=== PATIENT | male | born 1965 | race Caucasian/White ===

== ENCOUNTER 2016-11-21 07:38 | Emergency (ER) ==
[2016-11-21 07:59] LABS: URINE CULTURE PL NEEDED? NO; URINE SOURCE CLEAN CATCH
[2016-11-21 08:24] LABS: BILIRUBIN URINE NEGATIVE (NEGATIVE); BLOOD URINE NEGATIVE (NEGATIVE); CLARITY CLEAR (CLEAR); COLOR YELLOW; GLUCOSE URINE NEGATIVE (NEGATIVE); LEUKOCYTES URINE TRACE (NEGATIVE); NITRITE URINE NEGATIVE (NEGATIVE); PROTEIN URINE NEGATIVE (NEGATIVE); UROBILINOGEN URINE NORMAL
[2016-11-21 08:25] LABS: URINE EPITHELIAL CELLS <10 /HPF (<10); URINE RBC <10 /HPF (<10)
--- NOTE | 2016-11-21 08:53 | PROVIDER DOCUMENTATION ---
HPI-Male Problem - General Chief Complaint: Groin Pain Stated Complaint: ABD PAIN/UTI SX Time Seen by Provider: 11/21/16 08:33 Source: patient, family Allergies/Adverse Reactions: Patient Allergies Allergy/AdvReac Type Severity Reaction Status Date / Time meperidine HCl * Allergy Severe seizure Verified 04/18/15 00:02 [From Demerol] methylprednisolone AdvReac Severe NAUSEA Verified 04/18/15 00:02 Home Medications: Prednisone 5 mg PO DAILY 10/24/13 - History of Present Illness-Male Nature of Presenting Problem: Pt presents to er with cc of left groin pain with decreased output and urgency since Friday. Reports went to [facility] on Friday where an ultrasound of kidneys and bladder was done test came back negative. Pt reports hx of kidney stones,Mi, Sarcoidosis and takes daily prednisone for lung disease. Location of Complaint: reports: groin (left) Quality of Pain: reports: aching Severity in ED: reports: severe Onset/Duration: reports: 5 days ago Timing: reports: still present Urinary Symptoms: reports: urgency Similar Symptoms Previously?: Yes Recently seen or treated by another doctor?: Yes Review of Systems - Adult - REVIEW OF SYSTEMS - ADULT Constitutional: denies: chills, fever, fatique Eyes: reports: no symptoms reported Ears, Nose, Mouth & Throat: denies: ear pain, sinus problem, throat pain Cardiovascular: reports: no symptoms reported Respiratory: reports: no symptoms reported Gastrointestinal: reports: no symptoms reported Genitourinary: reports: see HPI, urgency. denies: frequent UTI's, hematuria, hesitency Musculoskeletal: reports: no symptoms reported Integumentary: reports: no symptoms reported Neurological: reports: no symptoms reported Psychiatric: reports: no symptoms reported Endocrine: reports: no symptoms reported Hematologic/Lymphatic: reports: no symptoms reported Allergic/Immunologic: reports: no symptoms reported All Other Systems: Reviewed and Negative Past History - Adult - PAST MEDICAL HISTORY-ADULT Review of Records: reports: Nursing Assessment Review Major Childhood Illnesses: reports: denies history Cardiovascular: reports: cardiac disease Respiratory: reports: other (sarcoidosis) Gastrointestinal: reports: cancer Obstetrical/Gynecological: reports: denies history Genitourinary: reports: kidney stones Musculoskeletal: reports: intervertebral disc disease, chronic pain Neurological: reports: Seizures/Epilepsy Psychiatric: reports: denies history Endocrine/Immune: reports: denies history Other Conditions: reports: denies history - PRIOR SURGERIES/PROCEDURES Surgical/Procedure History: reports: appendectomy, back/neck - PRIOR HOSPITALIZATIONS Prior Hospitalizations: reports: for other non-related - IMMUNIZATION STATUS Childhood Immunizations: See Nurse Assessment Flu Vaccine: See Nurse Assessment - FAMILY HISTORY Family History: CAD over 55 yo - SOCIAL HISTORY Smoking: denies Substance Use: none/never Physical Exam-General - PHYSICAL EXAM-ADULT Initial Vital Signs Reviewed: Yes - CONSTITUTIONAL General Appearance: appears well, alert, mild distress - EYES Eyes: PERRL/EOMI, pink conjunctivae - HEAD, EARS, NOSE, MOUTH & THROAT HENMT: normocephalic/atraumatic, moist mucous membranes, normal ENT inspection, TMs normal - RESPIRATORY Respiratory: chest non-tender, lungs clear, normal breath sounds, no pleuratic chest pain, no respiratory distress, no accessory muscle use - CARDIOVASCULAR Cardiovascular: normal peripheral pulses, regular rate, rhythm, no edema, no gallop, no JVD, no murmur - GASTROINTESTINAL (ABDOMEN) Abdominal Exam: normal bowel sounds, soft, no organomegaly, no pulsatile mass, tenderness (ttp left suprapubic area) - GENITOURINARY Male Genitalia: other (ttp left groin) - LYMPHATIC Lymphatic: no adenopathy - MUSCULOSKELETAL Back Exam: normal inspection, no CVA tenderness, no vertebral tenderness Extremity: normal range of motion, non-tender, normal gait - SKIN Integumentary: normal color, normal turgor, warm/dry - NEUROLOGIC Neurologic: grossly normal, no motor/sensory deficits - PSYCHIATRIC Psych/Mental Status: normal mood/affect, normal thought content, normal thought process, oriented x 3 Progress - PLAN OF CARE/RESULTS Progress/Plan/Lab Results: Orders Category Date Time Status RENAL STONE SEARCH [CT] Stat Exams 11/21/16 08:[address] W/POSS RFLX CULT [URINALYSIS] Stat Lab 11/21/16 07:40 Completed Vital Signs - 24 hr 11/21/16 07:43 Temperature 97.9 F Pulse Rate 66 Respiratory 18 Rate Blood Pressure 145/79 O2 Sat by Pulse 99 Oximetry Laboratory Tests 11/21/16 07:40 Urine Source CLEAN CATCH Urine Color YELLOW Urine Clarity CLEAR Urine pH 7.0 Ur Specific [place] 1.010 Urine Protein NEGATIVE Urine Ketones NEGATIVE Urine Blood NEGATIVE Urine Nitrite NEGATIVE Urine Bilirubin NEGATIVE Urine Urobilinogen NORMAL Urine Microscopic RBC <10 Urine WBC TRACE A Urine Microscopic WBC 10-20 A Ur Epithelial Cells <10 Urine Glucose NEGATIVE - CT/MRI 1 CT Study: Renal Stone Impression: Abnormal (3mm obstructing stone in the distal left ureter jsut proximal to uvj with very minimal left hydro) Departure - Departure Time of Disposition Order: 09:32 DIAGNOSIS: Left ureteral stone Disposition: HOME 01 Certified Medical Emergency: Emergent Condition: Stable Additional Instructions: Follow up with ED Follow Up Instructions: You have been treated by a care provider in the Emergency Department. These instructions are being provided to you so you can have an understanding of how to care for yourself upon discharge. Upon discharge from the Emergency Department, you are responsible for making arrangements for follow-up care by a physician of your choice. Take all prescribed medications as directed. Return to the Emergency Department immediately for any new or worsening symptoms. You may call the Physician Referral phone number at [phone] to obtain a list of Physicians who are taking new patients. Referrals: Joao Soria MD [Primary Care Provider] - Chuck Alcantar MD [STAFF PHYSICIAN] - Attestation - Scribe Verification/Attestation Scribe:: Billie Bermudez Acting as Scribe for:: Shavonne Hernandez Scribe documention review:: This chart was documented by a scribe and accurately reflects the service the provider performed and the decisions made by the provider.
[2016-11-21] MEDS ORDERED: ZOFRAN ODT PO ONE (09:31)
[2016-11-21] MEDS ORDERED: ROCEPHIN IM ONE (09:31)
[2016-11-21] MEDS ORDERED: XYLOCAINE-MPF 1% INJ ONE (09:31)
[2016-11-21] MEDS ORDERED: NORCO-10 PO ONE (09:31)
--- NOTE | 2016-11-21 09:55 | Diag Imaging Result Document ---
PROCEDURE NAME: RENAL STONE SEARCH - 11/21/2016 CT ABDOMEN AND PELVIS WITHOUT CONTRAST: COMPARISON: 01/07/2016. FINDINGS: There is mild subsegmental atelectasis versus scarring at the lung bases. There is suggestion of diffuse hepatic steatosis. There is a 3 mm obstructing stone at the distal left ureter just proximal to the left UVJ. There is very minimal dilation of the left renal pelvis as compared to the previous study. There are a couple tiny nonobstructing intrarenal stones at the lower pole of the left kidney. The urinary bladder is partially distended and is unremarkable, otherwise. There is a small fat-containing inguinal hernia on the left. It is stable. The remainder of the solid viscera of the abdomen and pelvis and the remainder of the GI tract is essentially unremarkable. No free abdominal gas or free fluid is identified. IMPRESSION: 1. Left nephrolithiasis with a 3 mm obstructing stone at the distal left ureter and associated very minimal left hydronephrosis. 2. Other incidental/nonacute findings detailed above.
[2016-11-21 10:26] VITALS: BP 144/66
== END 2016-11-21 10:25 | disposition home or self-care (01) ==
LOC: P.ED 07:38
DX: N13.2 Hydronephrosis with renal and ureteral calculous obstruction (principal); R10.32 Left lower quadrant pain; R39.15 Urgency of urination; R10.819 Abdominal tenderness, unspecified site; I25.2 Old myocardial infarction; G89.29 Other chronic pain; Z79.52 Long term (current) use of systemic steroids; Z87.442 Personal history of urinary calculi; Z82.49 Family history of ischemic heart disease and other diseases of the circulatory system
CPT/HCPCS: 74176; 81001; 96372; J0696

== ENCOUNTER 2019-11-01 11:54 | Observation (INO) ==
[~2019-11-01 11:54] MED LIST: PHENERGAN IV PRN; PNEUMOVAX 23 IM ONE
[2019-11-01 12:47] LABS: BASO# 0.02 X1000 (0.0-0.2); BASO% 0.4 % (0.0-0.8); EOS# 0.14 X1000 (0.0-0.7); EOS% 2.8 % (0.0-10.0); HEMATOCRIT 47.6 % (42.0-52.0); HEMOGLOBIN 15.7 g/dL (14.0-18.0); LYMPH# 1.13 X1000 (1.2-3.4); LYMPH% 22.6 % (20.5-51.1); MCH 29.2 PG (27-31); MCV 88.6 FL (81-99); MONO# 0.59 X1000 (0.11-0.59); MONO% 11.8 % (1.7-9.3); MPV 10.6 FL (7.4-10.4); NEUT# 3.13 X1000 (1.4-6.5); NEUT% 62.4 % (42.2-75.2); PLT 192 X1000 (130-400); RBC 5.37 XMIL (4.7-6.1); WBC 5.01 X1000 (4.8-10.8)
[2019-11-01] MEDS: DUONEB (A & A) INH PRN ×2 (13:15→22:26)
[2019-11-01 13:21] LABS: ALLEN TEST YES; BE 2.4 mmoll (-3.0-3.0); BLOOD TYPE ARTERIAL; HCO3-(ACT) 26.7 mmoll (20.0-26.0); METHB 0.7 % (0.0-1.5); O2(CT) 21.3 mL/dL (15.0-23.0); O2HB 94.4 % (95.0-99.0); PCO2(98.6) 38 mmHg (35-45); PO2(98.6) 65 mmHg (60-100); SAMPLE BLOOD; SAO2 96.6 % (95.0-100.0); THB 16.1 g/dL (11.5-17.4); pH(98.6) 7.45 (7.35-7.45)
[2019-11-01 13:22] LABS: MODALITY ROOM AIR
[2019-11-01 13:28] LABS: AGAP 11; BUN 9 mg/dL (8-22); CALCIUM 8.6 mg/dL (8.8-10.2); CHLORIDE 103 mmol/L (98-107); COSMO 281; CREATININE 1.2 mg/dL (0.7-1.2); ESTIMATED GFR > 60; GLUCOSE 91 mg/dL (70-104); POTASSIUM 3.6 mmol/L (3.5-5.1); SODIUM 142 mmol/L (136-145); TCO2 28 mmol/L (25-35)
[2019-11-01] MEDS: TAMIFLU PO SCH (16:14)
[2019-11-01] MEDS: NS 1,000 ML IV SCH (16:14)
[2019-11-01] MEDS: PROTONIX IV SCH (16:14)
[2019-11-01] MEDS: TYLENOL PO PRN ×2 (16:14→22:32)
[2019-11-01] MEDS: LEVAQUIN 500 MG/D5W 500 MG/100 ML IVPB IV SCH (16:15)
[2019-11-01] MEDS ORDERED: VENTOLIN HFA INH PRN (21:44)
[2019-11-01] MEDS: LOVENOX SUBQ SCH (22:32)
--- NOTE | 2019-11-01 23:58 | HISTORY AND PHYSICAL ---
CHIEF COMPLAINT: 1. Upper respiratory infection. 2. Positive flu A and flu B, he had similar presentation beginning of this year. HPI: He is a 54-year-old white gentleman basically seen on Friday with URI symptoms. He was initially started treating as an outpatient. He failed to get better came my office with weakness, not able to walk, as a result admitted to the hospital with IV fluids, IV antibiotics and antiviral drugs. PAST MEDICAL HISTORY: BPH, hyperlipidemia, kidney stones on the left side, sleep apnea, history of sarcoidosis. PAST SURGICAL HISTORY: Lung surgery with lung biopsy, appendectomy, back surgery, cervical vertebral fusion, renal lithotripsy. ALLERGIES: Demerol and Solu-Medrol. MEDICATIONS: Symbicort, albuterol, prednisone. SOCIAL HISTORY: 2nd time 1 kid, no smoking, no drugs, no alcohol abuse. FAMILY HISTORY: Father of gunshot wound at 41. Mom is 72 years old, had a cardiac arrest due to MA. HEALTH MAINTENANCE: Flu vaccine 2018, pneumococcal vaccine 12/08/2016. Colonoscopy October [address] Yu 3 cancers polyps. REVIEW OF SYSTEMS: HEENT: Headache, sniffles, coryza, earache, sore throat, postnasal drainage. No sore throat. Neck: No neck pain, no goiter, no lymphadenopathy. Cardiopulmonary: No chest pain, shortness of breath, PND, orthopnea. GI: No nausea, vomiting, abdominal pain. : No history of hesitancy, frequency, dysuria. No swelling of legs. No joint pain. Neurologic: No focal symptoms or weakness. PHYSICAL EXAMINATION: Temperature is 98.1 degrees, pulse 79, blood pressure is 108/73, 98% on room air, 5 feet 9, 210 pounds. HEENT: Atraumatic, normocephalic. Pupils equal, reactive to light. TMs are congested. Nose and throat postnasal drainage. NECK: Supple. No neck rigidity. CHEST: Clear to auscultation rhonchi. HEART: Sounds are regular. BELLY: Soft, obese, nontender. Good bowel sounds. No neurological deficits. INVESTIGATIONS: White cell count 5, hematocrit 47, platelets 192,000. ABG pH is 7.45, pCO2 38, PO2 67 on room air. SMA 7 is normal. Chest x-ray, no pneumonia on 10/30/2019, prior C-spine surgeries and bilateral hilar enlargement. ASSESSMENT AND PLAN: A 54-year-old white male admitted to the hospital with a flu superimposed infection with underlying sarcoidosis. PLAN: 1. IV fluids. 2. Tylenol for pain, bronchodilators, IV Levaquin, Tamiflu, GI, DVT prophylaxis with Lovenox and Protonix and history of sarcoidosis, currently on prednisone. Initiate vaccination protocol prior to the discharge and will follow up. cc: Lico Soria MD MTDTyshawn
[2019-11-02] MEDS: NS 1,000 ML IV SCH ×3 (04:01→19:43)
[2019-11-02] MEDS: PREDNISONE PO SCH (09:25)
[2019-11-02] MEDS: TAMIFLU PO SCH ×2 (09:25→21:07)
--- NOTE | 2019-11-02 10:37 | Diag Imaging Result Doc PS360 ---
CHEST-PORTABLE - 11/02/2019 INDICATION: hypoxia COMPARISON: 10/30/2019 FINDINGS: There is stable enlargement of the left hilum which was present on prior exams. This likely represents indeterminate lymphadenopathy. Otherwise, no infiltrates. Heart size and pulmonary vascularity is normal. No pneumothorax or pleural effusion. IMPRESSION: Probable left hilar lymphadenopathy. No change from prior. Electronically signed by Alhaji Ennis 11/02/2019 10:35 AM
[2019-11-02] MEDS: SYMBICORT 160/4.5 MICROGM INHALER INH SCH ×2 (10:53→20:03)
[2019-11-02] MEDS: LEVAQUIN 500 MG/D5W 500 MG/100 ML IVPB IV SCH (11:44)
[2019-11-02] MEDS: SODIUM CHLORIDE 0.9% INJ SCH (11:45)
[2019-11-02] MEDS: PROTONIX IV SCH (11:45)
[2019-11-02] MEDS: TYLENOL PO PRN (11:47)
[2019-11-02] MEDS: PHENERGAN WITH CODEINE LIQUID PO PRN ×2 (12:22→21:07)
[2019-11-02] MEDS ORDERED: TESSALON PO PRN (14:52)
--- NOTE | 2019-11-02 15:43 | PROGRESS NOTE ---
DATE: 11/02/2019 SUBJECTIVE: The patient still has some dry cough. REVIEW OF SYSTEMS: Otherwise none reported. PHYSICAL EXAMINATION: Vital Signs: Temperature is 97.8 degrees, pulse 55, blood pressure is 137/87, 98% on room air. HEENT: Within normal limits. Chest: Clear. Heart: Sounds are regular. INVESTIGATIONS: None reported. ASSESSMENT AND PLAN: 1. Influenza A and B. 2. Sarcoidosis. 3. Bronchitis. Plan is continue on fluids and Levaquin. 4. Deep venous thrombosis and gastrointestinal prophylaxes. 5. Add Tessalon Perles. Continue present treatment. LEVEL OF DOCUMENTATION: 25 minutes. cc: Lico Soria MD
[2019-11-02] MEDS: DUONEB (A & A) INH PRN (20:03)
[2019-11-02] MEDS: LOVENOX SUBQ SCH (21:07)
[2019-11-03] MEDS: SYMBICORT 160/4.5 MICROGM INHALER INH SCH ×2 (07:56→19:43)
[2019-11-03] MEDS: PREDNISONE PO SCH (09:18)
[2019-11-03] MEDS: NS 1,000 ML IV SCH (09:18)
[2019-11-03] MEDS: TAMIFLU PO SCH ×2 (09:18→21:34)
[2019-11-03] MEDS: PHENERGAN WITH CODEINE LIQUID PO PRN ×3 (09:22→21:45)
--- NOTE | 2019-11-03 10:17 | PROGRESS NOTE ---
DATE: 11/03/2019 SUBJECTIVE: The patient says he is feeling a little bit better but feels like he cannot cough up the sputum that he needs to cough up. OBJECTIVE: Vital Signs: Stable. Temperature 97.9 degrees Fahrenheit, pulse 55, respirations 20, blood pressure 139/82. HEENT: Normocephalic. EOMS intact. PERRLA. Throat clear. Lungs: Rales and wheezes scattered throughout. Heart: Regular rate and rhythm without murmurs, gallops, or friction rubs. Abdomen: Soft. ASSESSMENT: 1. Influenza type A and B. 2. Sarcoidosis. 3. Bronchitis. PLAN: We will continue support and antibiotics as well as Tamiflu. cc: MD Lico Corrigan Jr, MD
[2019-11-03] MEDS: PROTONIX IV SCH (12:16)
[2019-11-03] MEDS: SODIUM CHLORIDE 0.9% INJ SCH (12:16)
[2019-11-03] MEDS: LEVAQUIN 500 MG/D5W 500 MG/100 ML IVPB IV SCH (12:16)
[2019-11-03] MEDS: LOVENOX SUBQ SCH (21:34)
[2019-11-03] MEDS: DUONEB (A & A) INH PRN (22:20)
[2019-11-04] MEDS: NS 1,000 ML IV SCH ×2 (00:03→14:06)
[2019-11-04] MEDS: SYMBICORT 160/4.5 MICROGM INHALER INH SCH ×2 (07:34→19:06)
[2019-11-04] MEDS: PREDNISONE PO SCH (09:34)
[2019-11-04] MEDS: TAMIFLU PO SCH ×2 (09:34→22:00)
[2019-11-04] MEDS: SODIUM CHLORIDE 0.9% INJ SCH (11:55)
[2019-11-04] MEDS: LEVAQUIN 500 MG/D5W 500 MG/100 ML IVPB IV SCH (11:55)
[2019-11-04] MEDS: PROTONIX IV SCH (11:55)
[2019-11-04] MEDS: MUCINEX PO SCH ×2 (11:55→22:00)
--- NOTE | 2019-11-04 19:00 | PROGRESS NOTE ---
DATE: 11/04/2019 SUBJECTIVE: The patient is getting better and still some cough. PHYSICAL EXAMINATION: Vital signs: Temperature is 97 degrees. Pulse is 57. Vitals are stable. HEENT: Within normal limits. Neck: Supple. Chest: Clear. Heart: Sounds are regular. Abdomen: Belly is soft, nontender. ASSESSMENT: 1. Influenza A and B. 2. Sarcoidosis. 3. Superimposed bronchitis and dehydration. PLAN: 1. Discontinue intravenous fluids. 2. Nebulizers. 3. Intravenous antibiotics with Levaquin. 4. Tamiflu. 5. Continue on prednisone and Tessalon Perles. 6. If she continues to improve, will discharge in the morning. LEVEL OF DOCUMENTATION: 25 minutes. cc: Lico Soria MD
[2019-11-04] MEDS: DUONEB (A & A) INH PRN (19:07)
[2019-11-04] MEDS: LOVENOX SUBQ SCH (22:00)
[2019-11-05] MEDS: SYMBICORT 160/4.5 MICROGM INHALER INH SCH (07:40)
[2019-11-05 08:10] VITALS: BP 133/84
[2019-11-05] MEDS ORDERED: PREVNAR 13 IM ONE (10:06)
[2019-11-05] MEDS: PREDNISONE PO SCH (11:22)
[2019-11-05] MEDS: MUCINEX PO SCH (11:22)
[2019-11-05] MEDS: TAMIFLU PO SCH (11:22)
--- NOTE | 2019-11-06 14:48 | DISCHARGE SUMMARY ---
ADMISSION DATE: 11/01/2019 DISCHARGE DATE: 11/05/2019 DISCHARGING DIAGNOSIS: Acute upper respiratory infection with bronchitis with positive flu A and flu B. SECONDARY DIAGNOSES: 1. BPH. 2. Hyperlipidemia. 3. Kidney stones. 4. Sleep apnea. 5. History of sarcoidosis. BRIEF HISTORY: Please see the H and P that was done on 11/01/2019. In brief, he is a 54-year-old white gentleman who was treated outpatient with flu A and flu B despite vaccinations. In fact, he had a similar presentation December of this year. Not able to improve with cough and dehydration. HOSPITAL COURSE: The patient was given Tamiflu, IV fluids, IV antibiotics with Levaquin. Rest of the hospital course was uneventful. LABS: CBC: White cell count 5, hematocrit 47, platelet count 192,000. ABG, pH is 7.45, pCO2 38, PO2 65 on room air. SMA 7 is normal. Calcium is normal. Chest x-ray was stable. Left hilar adenopathy. DISCHARGE INSTRUCTIONS: Pneumococcal vaccine 13 was given 11/05/2019. ProAir as needed, Symbicort 160/4.5, one puff b.i.d., prednisone 5 mg daily, Levaquin 500 daily, Cyzs-Kgolylj-Y 1 teaspoon p.o. q. 8. Follow up in my office in 10 days. cc: Lico Soria MD MTDD
== END 2019-11-05 11:52 | disposition home or self-care (01) ==
LOC: DIRADM → 3N 11:54
PROVIDERS: ADMIT Internal Medicine; ATTEND Internal Medicine